=== PATIENT | female | born 1985 | race Two or more races ===

== ENCOUNTER → 2018-10-04 | Emergency (ER) | payer OTHER ==
[~2018-10-04] VITALS: Ht 167.6 cm; Wt 97.5 kg
[~2018-10-04] MED LIST: ALBUTEROL2.5 MG/3 M IH; SYMBICORT 16010.2 GM IH; ZYNCOF 20-400120 ML PO; ZYRTEC10 MG PO
== END | disposition home or self-care (01) ==
LOC: ER 00:42
DX: J40 Bronchitis, not specified as acute or chronic (principal)